=== PATIENT | female | born 1940 | race Caucasian/White ===

== ENCOUNTER 2016-11-15 10:17 | Outpatient (CLI) | payer MEDICARE, BC ==
--- NOTE | 2016-11-15 13:43 | RAD ---
CHEST TWO VIEWS: Comparison: 08-30-16 History: Dyspnea. FINDINGS: Persistent elevation of the right hemidiaphragm. Chronic change of the lung parenchyma. No pleural e ffusion. No pneumothorax. Stable cardiac silhouette. Bilateral humeral prostheses are noted. There i s mild bone demineralization. Inappropriately evaluated IVC filter. IMPRESSION: 1. No acute cardiopulmonary process. 2. Chronic changes. POS: [facility]
== END 2016-11-15 10:18 | disposition home or self-care (01) ==
LOC: RAD 10:17
PROVIDERS: ATTEND Internal Medicine Critical Care Medicine
DX: R06.00 Dyspnea, unspecified (principal)
CPT/HCPCS: 71020

== ENCOUNTER 2018-07-24 12:10 | Outpatient (CLI) | payer MEDICARE, BC ==
--- NOTE | 2018-07-24 12:53 | RAD ---
AP view chest. HISTORY: Dyspnea. AP view chest is obtained on 07/24/2018. Comparison made to previous exam from 11/15/2016. There is elevation of the right hemidiaphragm unchanged since the previous exam. No acute intrathorac ic abnormality seen. No significant interval changes noted. IMPRESSION: elevated right hemidiaphragm.
== END 2018-07-24 12:11 | disposition home or self-care (01) ==
LOC: RAD 12:10
PROVIDERS: ATTEND Internal Medicine Critical Care Medicine
DX: R06.00 Dyspnea, unspecified (principal); Q79.1 Other congenital malformations of diaphragm
CPT/HCPCS: 71046

== ENCOUNTER 2019-03-30 23:21 | Observation (INO) | payer MEDICARE, BC ==
[2019-03-31 00:11] LABS: #Basophils 0.1 thou/uL (0.0-0.2); #Eosinphils 0.2 thou/uL (0.0-0.7); #Lymphocytes 1.4 thou/uL (1.20-3.40); #Monocytes 0.6 thou/uL (0.11-0.59); #Neutrophils 5.6 thou/uL (1.40-6.50); %Basophils 0.9 % (0.0-1.0); %Eosinophils 2.5 % (0.0-10.0); %Lymphocytes 17.3 % (21.0-51.0); %Monocytes 7.5 % (0.0-10.0); %Neutrophils 71.9 % (42.0-75.0); Hemoglobin 13.1 g/dL (12.0-16.0); Mean Corpuscular HGB CONC 33.5 g/dL (32.0-36.0); Mean Corpuscular Hemoglobin 33.1 pg (27.0-31.0); Mean Corpuscular Volume 98.9 fL (78.0-98.0); Platelet Count 213 thou/uL (130-400); RBC Distribution Width 13.7 % (11.5-14.5); Red Blood Cell (RBC) Count 3.94 mill/uL (4.20-5.40); White Blood Cell (WBC) Count 7.8 thou/uL (4.8-10.8)
[2019-03-31 00:33] LABS: ALT (SGPT) 16 U/L (8-55); AST (SGOT) 21 U/L (5-34); Alkaline Phosphatase 103 U/L (40-110); Anion Gap 10 mmol/L (10-20); BUN (Urea Nitrogen) 15 mg/dL (9.8-20.1); Bilirubin, Total 0.4 mg/dL (0.2-1.2); Calc. Creatinine Clearance 0 mL/min (70-130); Calcium 8.9 mg/dL (7.8-10.44); Carbon Dioxide 36 mmol/L (23-31); Chloride 99 mmol/L (98-107); Estimated GFR-MDRD 58; Globulin 2.7 g/dL (2.4-3.5); Glucose 102 mg/dL (83-110); Potassium 4.2 mmol/L (3.5-5.1); Protein, Total 6.7 g/dL (6.0-8.3); Sodium 141 mmol/L (136-145)
[2019-03-31] MEDS ORDERED: Morphine 4 MG/ML VIAL ONE ×3 (01:00→05:42)
[2019-03-31] MEDS ORDERED: Ondansetron PF 4 MG/2 ML Vial ONE (01:00)
--- NOTE | 2019-03-31 05:38 | HP ---
REQUESTING PHYSICIAN: Micky Sanon MD ATTENDING SURGEON: Dr. Wilkins. CONSULTATIONS: Orthopedics, Dr. Lamas. HISTORY OF PRESENT ILLNESS: The patient is a 78-year-old woman, who primarily gets around in a wheelchair. She is able to do transfers and stand and pivot at baseline. Tonight, she was attempting to use the bathroom when she slipped and fell landing on her left hip. She was able to tolerate the pain for several hours and then eventually was brought to the emergency room, where she was evaluated, examined, and noted to have an incomplete periprosthetic fracture of her left proximal femur. Per discussion with Dr. Lamas, the patient will be best managed nonoperatively. The patient declined rehab. The family was concerned that she would not be able to tolerate the duration of time and they asked for placement into a skilled facility or something less strenuous to the patient. ALLERGIES: STADOL. CURRENT MEDICATIONS: 1. Clopidogrel. 2. Klor-Con. 3. Folic acid. 4. Montelukast. 5. Pravastatin. 6. Methotrexate. 7. Phenergan. 8. Synthroid. 9. Fluconazole. PAST MEDICAL HISTORY: Evelio's granulomatosis, squamous cell carcinoma of the skin, fibromyalgia, phlebitis, osteoporosis, depression. PAST SURGICAL HISTORY: Total hysterectomy, left hip replacement, right shoulder replacement, knee arthroscopic surgery x2, right knee replacement, tonsillectomy, skin biopsies and cancer removals, cataract surgery, intra-ocular lens implantation. SOCIAL HISTORY: The patient lives at home with family, and her daughter. Her daughter is her primary caregiver. The patient denies drug or alcohol use, though smoked greater than 50 years ago. REVIEW OF SYMPTOMS: A 10-point review of systems is negative except as otherwise stated. PHYSICAL EXAMINATION: VITAL SIGNS: Blood pressure 111/48, heart rate 87, respirations 20, and oxygen saturation 100% on 2 L via nasal cannula temperature is 97.6. GENERAL: The patient is resting comfortably in bed. She is awake, alert, and oriented x3. Zheng Coma Scale is 15. HEENT: Head is normocephalic atraumatic. Eyes, extraocular motion intact. PERRLA bilaterally. Ears are atraumatic without discharge. Nose atraumatic without discharge. Oropharynx is clear. NECK: Nontender. Trachea is midline. No JVD. CHEST: Clear to auscultation with good inspiratory and expiratory effort. HEART: Regular rate and rhythm. ABDOMEN: Soft, flat, nontender with active bowel sounds. Pelvis is stable with tenderness to palpation to the left hip consistent with her proximal femur fracture. EXTREMITIES: Neurovascularly intact x4 with the exception of the left lower extremity has chronic neurapraxia and valgus deformity of the ankle. BACK: By report is atraumatic and nontender. LABORATORY FINDINGS: White blood cell count 7.8, hemoglobin 13.1, hematocrit 39.0, platelets 213. Sodium 141, potassium 4.2, chloride 99, CO2 of 36, BUN 15, creatinine 0.93, glucose 102. LFTs are unremarkable. RADIOGRAPHIC FINDINGS: AP pelvis shows a periprosthetic fracture of the left proximal femur. Views of the left femur again demonstrated periprosthetic proximal femur fracture. ASSESSMENT: 1. Status post ground level fall. 2. Left periprosthetic proximal femur fracture. 3. Acute on chronic pain. 4. Multiple comorbidities. PLAN: Plan will be to admit the patient to the surgical floor for observation, pain control, and arrange placement. The patient lives in [place]. The family request either Swing Bed in [place] or possible placement to [facility]. This will be passed along to the Case Management team. The evaluation, examination, laboratory, and radiographic findings were discussed with Dr. Wilkins in the emergency department prior to this dictation. Job ID: [id number]
[2019-03-31 06:21] LABS: Bilirubin Negative (Negative); Blood, Urine Negative (Negative); Clarity Clear (Clear); Glucose, Urine (Dipstick) Normal (Negative); Leukocyte Negative Leu/uL (Negative); Nitrite Negative (Negative); Protein, Urine (Dipstick) Negative (Neg-Trace); Urobilinogen Normal mg/dL (Less than 2)
[2019-03-31] MEDS ORDERED: Ondansetron PF 4 MG/2 ML Vial IVP PRN (07:27)
[2019-03-31] MEDS ORDERED: Acetaminophen 500 MG TAB PO PRN (07:27)
[2019-03-31] MEDS ORDERED: Dextrose 50% Abboject 50 ML SYRINGE SLOW IVP PRN (07:27)
[2019-03-31] MEDS ORDERED: Dextrose 5% in Water 1,000 ML IV PRN (07:27)
[2019-03-31] MEDS ORDERED: Ondansetron ODT 4 MG TAB PO PRN (07:27)
[2019-03-31] MEDS ORDERED: Acetaminophen/Codeine 30-300mg Tablet PO PRN (07:27)
[2019-03-31] MEDS ORDERED: hydrALAZINE 20 MG/ML VIAL SLOW IVP PRN (07:27)
[2019-03-31] MEDS: Famotidine 20 MG TAB PO SCH ×2 (09:28→20:07)
[2019-03-31] MEDS: Acetaminophen/Codeine 30-300mg Tablet PO PRN ×2 (09:29→15:27)
[2019-03-31] MEDS: Gabapentin 100 MG CAP PO SCH ×2 (09:29→20:07)
--- NOTE | 2019-03-31 09:42 | RAD ---
EXAM: XR Pelvis AP STANDARD PROVIDED CLINICAL HISTORY: Left hip pain after a fall. COMPARISON: None FINDINGS: A left total hip prosthesis is noted in place. The distal aspect of the femoral component is not imag ed. There is a lucency seen at the lateral aspect intertrochanteric region left hip with cortical irregularity suggestive of a fracture. Calcifications overlie the gluteal regions bilaterally suggest ing injection granulomata. Calcifications overlie the pelvis likely related to phleboliths. Partial visualization of IVC filter is noted to the right of midline lower abdomen. Vascular calcifications a re seen in the iliac and femoral arteries. IMPRESSION: 1. Nondisplaced fracture involving the intertrochanteric region left hip seen laterally.
--- NOTE | 2019-03-31 09:45 | RAD ---
Exam: XR Femur Lt 2 View STANDARD HISTORY: Left femur pain after a fall. COMPARISON: AP view pelvis also obtained on this date FINDINGS: Left total hip prosthesis is noted without hardware complication seen. As noted on views of the pelvi s, there is a fracture involving the intertrochanteric region left hip with subtle lucency seen along the medial aspect proximal femoral diaphysis likely related to extension of fracture from the i ntertrochanteric region into the proximal diaphysis of the left femur. Fracture is nondisplaced. No additional fractures appreciated. Osteoarthritis is present at the knee. There are lucencies and sclerosis seen involving the distal fe mur involving the metadiaphysis as well as each femoral condyle with lucency and sclerosis also seen in the proximal tibia. These findings are likely related to either low-grade chondroid lesions v ersus bone infarctions. Prominent calcification seen overlying the gluteal subcutaneous soft tissues likely due to injection granulomata. Vascular calcifications are seen in the femoral arteries. IMPRESSION: 1. Nondisplaced fracture proximal left femur as described above. 2. Left total hip prosthesis. 3. Findings likely related to bone infarctions or less likely low-grade chondroid lesions involving t he distal femur and proximal tibia.
[2019-03-31 10:15] VITALS: BMI 47.0
--- NOTE | 2019-03-31 10:55 | CON ---
DATE OF CONSULTATION: 03/31/2019 CHIEF COMPLAINT: Left hip pain. HISTORY OF PRESENT ILLNESS: Ms. Pedraza is a 78-year-old female, who has a history of total hip arthroplasty approximately 20 years ago. She mostly gets around with a wheelchair now. She does stand for transfers and pivoting. She fell while she was using the bathroom and landed on her left hip. She had pain in the left hip and was brought to the emergency department. X-rays demonstrated a proximal periprosthetic fracture of the femur. The patient was admitted to the hospital for pain control and possible placement to a skilled facility. ALLERGIES: TO STADOL. PAST MEDICAL HISTORY: Squamous cell carcinoma, fibromyalgia, phlebitis, osteoporosis, depression, and Evelio's granulomatosis. PAST SURGICAL HISTORY: Total hysterectomy, left total hip arthroplasty, bilateral shoulder arthroplasty, previous knee surgery, arthroscopic and subsequent right knee arthroplasty, tonsillectomy, cataract surgery, and eye surgery. SOCIAL HISTORY: The patient lives at her home with her and daughter. She again uses a wheelchair mostly for mobilization. She denies alcohol, tobacco, or drug use. REVIEW OF SYSTEMS: Positive for left hip pain. Otherwise, negative 10-point review of systems. PHYSICAL EXAMINATION: VITAL SIGNS: Stable. The patient is normotensive, 98% on room air. GENERAL: The patient is somewhat sleepy, but does respond to questions appropriately. HEENT: Normocephalic and atraumatic. LUNGS: Breathing comfortably. ABDOMEN: Soft, nontender, and nondistended. MUSCULOSKELETAL: The patient has well-healed surgical scars over the shoulders as well as knee and left hip. There is no erythema. She has good motion of the shoulder. She can elevate both without pain. Her right leg is atraumatic. Her left leg has a chronic foot drop. She has weakness as well as decreased sensation in the foot. She cannot dorsiflex the foot or toes. She has pain with log rolling of the hip. IMAGING DATA: X-rays of the left hip demonstrate a total hip arthroplasty, which appears to have a well-fixed stem. There is a proximal femur fracture, which is periprosthetic. This does not seem to extend distally and has not loosened the stem. The acetabular cup appears to be intact. IMPRESSION: Periprosthetic left femur fracture in an elderly female, who is a minimal ambulator. PLAN: At this point, the patient will have pain control. She will have medical management. She will have DVT prophylaxis. She can mobilize and weightbear as tolerated on her left leg for transfers and for other exercises. She possibly can go back home if her family can continue to care for her versus going to a shelter facility. She should follow up with Orthopedics in approximately 1 month for repeat hip x-ray. Job ID: [id number]
[2019-03-31] MEDS: Cyclobenzaprine 10 MG TAB PO PRN (15:09)
--- NOTE | 2019-03-31 18:33 | PRG ---
DATE OF SERVICE: 03/31/2019 SUBJECTIVE: Ms. Pedraza is a 78-year-old female with status post ground level fall. She sustained left periprosthetic proximal femur fracture. The patient was seen by Dr. Lamas. The patient will be treated conservatively regarded to her left periprosthetic hip fracture. The patient will be working with Physical Therapy and Occupational Therapy and working toward placement in detention facility or probably going home, if the patient condition is feasible per Physical therapy. The patient has been stable since admission. Vital signs stable and she tolerated with her regular diet. OBJECTIVE: GENERAL: Currently, the patient lying in bed comfortable with no acute respiratory distress. VITAL SIGNS: Heart rate 80, respiratory rate 20, O2 saturation 95 on room air, and blood pressure is 120/40. LUNGS: Clear bilaterally. HEART: Regular rate and rhythm. ABDOMEN: Soft and nondistended. EXTREMITIES: Neurovascularly intact x4. NEUROLOGIC: No focal neurology deficits. ASSESSMENT: 1. Status post ground level fall. 2. Left periprosthetic proximal femur fracture, conservative treatment. 3. History of hypothyroid. PLAN: Plan will be to continue supportive care. Continue pain control. Anticipate placement in detention facility or swing bed in [place]. Continue working with physical therapy and occupational therapy. Continue DVT prophylaxis. Job ID: [id number]
[2019-03-31] MEDS: Senokot S 8.6-50 MG TAB PO SCH (20:07)
[2019-03-31] MEDS ORDERED: Atorvastatin Calcium 10 MG TAB PO SCH (21:00)
[2019-03-31] MEDS ORDERED: Senokot 8.6 MG TAB PO SCH (21:00)
--- NOTE | 2019-03-31 22:48 | PRG ---
DATE OF SERVICE: 03/31/2019 SUBJECTIVE: The patient is currently on the surgical floor. She is status post ground level fall when she sustained a periprosthetic left proximal femur fracture. The patient was evaluated by Orthopedics who determined that she was best treated nonsurgical as she is a minimal ambulator and her prosthetic appears to be intact. The patient is currently awaiting placement. She was able to start working with Therapy today, albeit sitting at the edge of the bed. She is tolerating a diet. Her pain is controlled. PHYSICAL EXAMINATION: VITAL SIGNS: Stable. The patient is afebrile. GENERAL: The patient is resting comfortably in bed. She was asleep when I entered the room. She did wake to verbal stimuli and stated that she had no issues at this time. LUNGS: Respirations are nonlabored. HEART: Regular rate and rhythm. ABDOMEN: Nondistended. EXTREMITIES: Neurovascularly intact x4. The left lower extremity, again has chronic footdrop with valgus deformity. ASSESSMENT AND PLAN: 1. Status post ground level fall. 2. Left periprosthetic hip fracture. 3. Acute on chronic pain. 4. Multiple medical comorbidities. Plan will be to continue supportive care, encourage physical and occupational therapy and await placement decision. Job ID: [id number]
[2019-04-01] MEDS: Acetaminophen/Codeine 30-300mg Tablet PO PRN ×2 (05:15→12:31)
[2019-04-01] MEDS ORDERED: Levothyroxine Sodium 75 MCG TAB PO SCH (06:00)
[2019-04-01] MEDS: Gabapentin 100 MG CAP PO SCH (07:56)
[2019-04-01] MEDS: Famotidine 20 MG TAB PO SCH (07:56)
[2019-04-01] MEDS: Cyclobenzaprine 10 MG TAB PO PRN (07:56)
[2019-04-01] MEDS: Senokot S 8.6-50 MG TAB PO SCH (07:56)
[2019-04-01] MEDS ORDERED: Docusate 100 MG CAP PO SCH (09:00)
[2019-04-01] MEDS ORDERED: Clopidogrel Bisulfate 75 MG TAB PO SCH (09:00)
[2019-04-01] MEDS ORDERED: Polyethylene Glycol 3350 17 GM Packet PO SCH (09:00)
--- NOTE | 2019-04-01 09:32 | RAD ---
EXAM: Single view of the chest HISTORY: Left hip fracture; aspiration COMPARISON: 08/17/2013 FINDINGS: Single view of the chest shows a normal sized cardiomediastinal silhouette. There is stabl e elevation the right hemidiaphragm. There is no evidence of consolidation, mass, or pleural effusion. The patient has bilateral shoulder prostheses. Cystectomy clips are seen. IMPRESSION: No evidence of acute cardiopulmonary disease
[2019-04-01] MEDS ORDERED: Gabapentin 100 MG CAP PO SCH (15:00)
[2019-04-01 15:29] VITALS: BP 137/75; TEMP 98.7
== END 2019-04-01 15:45 ==
LOC: ERS 23:21 → SURG A 03-31 08:38
PROVIDERS: ADMIT Surgery; ATTEND Surgery
DX: M97.02XA Periprosthetic fracture around internal prosthetic left hip joint, initial encounter (principal); G89.11 Acute pain due to trauma; G89.29 Other chronic pain; M81.0 Age-related osteoporosis without current pathological fracture; F32.9 Major depressive disorder, single episode, unspecified; M79.7 Fibromyalgia; M31.30 Wegener's granulomatosis without renal involvement; M21.372 Foot drop, left foot; E78.5 Hyperlipidemia, unspecified; E03.9 Hypothyroidism, unspecified; Z96.651 Presence of right artificial knee joint; Z96.611 Presence of right artificial shoulder joint; Z87.891 Personal history of nicotine dependence; Z79.02 Long term (current) use of antithrombotics/antiplatelets; Z79.899 Other long term (current) drug therapy; Z88.6 Allergy status to analgesic agent; Z88.8 Allergy status to other drugs, medicaments and biological substances; W01.0XXA Fall on same level from slipping, tripping and stumbling without subsequent striking against object, initial encounter
CPT/HCPCS: 51702; 71045; 72170; 73552; 80053; 81003; 85025; 87086; 93005; 96361; 96374; 96375; 96376 ×2; 97110; 97139 ×2; 97530; 99285; G0378 ×3; 36415; J2270; J2405

== ENCOUNTER 2019-11-18 14:14 | Emergency (ER) | payer MEDICARE, BC, OTHER ==
[2019-11-18 15:06] LABS: #Basophils 0.1 thou/uL (0.0-0.2); #Eosinphils 0.2 thou/uL (0.0-0.7); #Lymphocytes 1.2 thou/uL (1.20-3.40); #Monocytes 0.4 thou/uL (0.11-0.59); #Neutrophils 3.2 thou/uL (1.40-6.50); %Basophils 1.9 % (0.0-1.0); %Eosinophils 3.4 % (0.0-10.0); %Lymphocytes 23.8 % (21.0-51.0); %Monocytes 7.8 % (0.0-10.0); Hemoglobin 13.1 g/dL (12.0-16.0); Mean Corpuscular HGB CONC 32.4 g/dL (32.0-36.0); Mean Corpuscular Hemoglobin 31.9 pg (27.0-31.0); Mean Corpuscular Volume 98.7 fL (78.0-98.0); Mean Platelet Volume 7.9 fL (7.4-10.4); Platelet Count 195 thou/uL (130-400); Red Blood Cell (RBC) Count 4.11 mill/uL (4.20-5.40)
[2019-11-18 15:26] LABS: ALT (SGPT) 13 U/L (8-55); AST (SGOT) 24 U/L (5-34); Alkaline Phosphatase 90 U/L (40-110); Anion Gap 14 mmol/L (10-20); BUN (Urea Nitrogen) 16 mg/dL (9.8-20.1); Bilirubin, Total 0.6 mg/dL (0.2-1.2); Calc. Creatinine Clearance 0 mL/min (70-130); Carbon Dioxide 30 mmol/L (23-31); Chloride 100 mmol/L (98-107); Estimated GFR-MDRD 64; Glucose 96 mg/dL (83-110); Sodium 140 mmol/L (136-145)
--- NOTE | 2019-11-18 17:04 | RAD ---
PORTABLE CHEST ONE VIEW: Date: 11-18-2019 Time: 4:45 p.m. History: Shortness of breath, concern for pneumonia. Comparison: 04-13-2019 FINDINGS: There is continued elevation of the right hemidiaphragm. The heart size is normal. No lobar consolida tion, pneumothoraces, jacob pulmonary edema or pleural effusions are seen. Post op changes of bilater al humeral head prostheses are again seen. IMPRESSION: No acute process. POS: [facility]
[2019-11-18] MEDS ORDERED: Albuterol 200 PUFF (6.7GM INHALER) ONE (17:17)
[2019-11-19 12:05] LABS: SARS-CoV-2 MS2 Positive; SARS-CoV-2 N Gene Negative; SARS-CoV-2 S Gene Negative; SARS-CoV-2 by NAA Not Detected (NotDetected); SARS-CoV-2 orf1ab Negative
== END 2019-11-18 19:57 | disposition home or self-care (01) ==
LOC: ERS 14:14
DX: J18.9 Pneumonia, unspecified organism (principal); Z20.828 Contact with and (suspected) exposure to other viral communicable diseases; E78.5 Hyperlipidemia, unspecified; M79.7 Fibromyalgia; F32.9 Major depressive disorder, single episode, unspecified; Z79.899 Other long term (current) drug therapy
CPT/HCPCS: 71045; 80053; 83880; 84484; 85025; 93005; U0003; 36415; 87635

== ENCOUNTER 2019-11-25 14:57 | Emergency (ER) | payer MEDICARE, BC ==
[~2019-11-25 14:57] MED LIST: Iopamidol-370 76% 500 ML 1 ML ONE
[2019-11-25 17:06] LABS: #Basophils 0.1 thou/uL (0.0-0.2); #Eosinphils 0.1 thou/uL (0.0-0.7); #Lymphocytes 1.3 thou/uL (1.20-3.40); #Monocytes 0.4 thou/uL (0.11-0.59); #Neutrophils 3.1 thou/uL (1.40-6.50); %Basophils 1.7 % (0.0-1.0); %Eosinophils 2.4 % (0.0-10.0); %Lymphocytes 26.1 % (21.0-51.0); %Monocytes 7.5 % (0.0-10.0); %Neutrophils 62.3 % (42.0-75.0); Hemoglobin 13.2 g/dL (12.0-16.0); Mean Corpuscular HGB CONC 33.1 g/dL (32.0-36.0); Mean Corpuscular Hemoglobin 32.2 pg (27.0-31.0); Mean Corpuscular Volume 97.3 fL (78.0-98.0); Mean Platelet Volume 9.3 fL (7.4-10.4); Platelet Count 197 thou/uL (130-400); RBC Distribution Width 14.6 % (11.5-14.5); Red Blood Cell (RBC) Count 4.09 mill/uL (4.20-5.40); White Blood Cell (WBC) Count 4.9 thou/uL (4.8-10.8)
[2019-11-25 17:38] LABS: ALT (SGPT) 19 U/L (8-55); AST (SGOT) 53 U/L (5-34); Albumin 3.8 g/dL (3.4-4.8); Alkaline Phosphatase 101 U/L (40-110); Anion Gap 15 mmol/L (10-20); BUN (Urea Nitrogen) 18 mg/dL (9.8-20.1); Bilirubin, Total 0.5 mg/dL (0.2-1.2); Calc. Creatinine Clearance 0 mL/min (70-130); Calcium 8.8 mg/dL (7.8-10.44); Carbon Dioxide 28 mmol/L (23-31); Chloride 99 mmol/L (98-107); Estimated GFR-MDRD 58; Glucose 100 mg/dL (83-110); Potassium 5.5 mmol/L (3.5-5.1); Protein, Total 7.8 g/dL (6.0-8.3); Sodium 136 mmol/L (136-145)
--- NOTE | 2019-11-25 19:16 | ULT ---
BILATERAL LOWER EXTREMITY VENOUS DOPPLER EVALUATION PROVIDED CLINICAL HISTORY: Bilateral lower extremity edema TECHNIQUE: Grayscale, color doppler and spectral doppler images were obtained of the common femoral , femoral, profunda femoral, popliteal and posterior tibial veins of both lower extremities. FINDINGS: There is normal compression, flow and augmentation seen with the deep venous structures within both l ower extremities. There is subcutaneous edema involving the forelegs bilaterally. IMPRESSION: No sonographic evidence for lower extremity deep venous thrombosis.
[2019-11-25] MEDS ORDERED: Dexamethasone 10 MG/ML VIAL ONE (20:52)
--- NOTE | 2019-11-25 21:15 | CT ---
CTA OF THE CHEST WITH CONTRAST: Comparison: CT abdomen/pelvis 07-14-10 History: Sore throat for three weeks. Cough. Technique: Multiple contiguous axial images were obtained in a CTA of the chest with contrast perform ed with pulmonary embolism protocol. 3D oblique MIP reformats and direct coronal reformats were perfo rmed. FINDINGS: The pulmonary arteries are well opacified without filling defects to suggest pulmonary emboli. The he art is normal in size. There was a left upper extremity injection. There are extensive venous collate rals in the chest wall bypassing a region of the left subclavian vein suggesting that there is possib ly a narrowing or stenosis of the left subclavian vein. No hilar or mediastinal lymphadenopathy is seen. There are calcifications in the trachea and victoria of the bronchi. There is elevation of the right hemidiaphragm. No pneumothorax or pleural effusion are seen. No suspi cious pulmonary mass or focal infiltrates are seen. Atelectasis is seen in the right lung base. A nod ular opacity along the left major fissure appears to contain a calcification likely a calcified granu porsha. Degenerative changes are seen in the spine. The patient is status post cholecystectomy. Biliary dilat ation is likely a reservoir effect from prior cholecystectomy. IMPRESSION: 1. No evidence of pulmonary thromboembolism. 2. Possible left subclavian vein narrowing or occlusion with collaterals as described above. POS: [facility]
== END 2019-11-25 21:05 | disposition home or self-care (01) ==
LOC: ERS 14:57
DX: R60.0 Localized edema (principal); F32.9 Major depressive disorder, single episode, unspecified; J02.9 Acute pharyngitis, unspecified; E78.5 Hyperlipidemia, unspecified; Z87.891 Personal history of nicotine dependence; Z79.899 Other long term (current) drug therapy
CPT/HCPCS: 71275; 80053; 83880; 84484; 85025; 93005; 93970; 96374; J1100; Q9967

== ENCOUNTER 2019-12-11 12:31 | Emergency (ER) | payer MEDICARE, BC ==
--- NOTE | 2019-12-11 16:30 | RAD ---
PORTABLE CHEST: Date: 12/11/2019 INDICATION: Low O2 levels. COMPARISON: 11/18/2019. FINDINGS: Elevated right hemidiaphragm is again noted. There is associated right basilar atelectasis and/or inf iltrate. Small right effusion may be present. There is cardiomegaly and mid vascular engorgement. Donna st findings appear stable from 11/18/2019. IMPRESSION: Stable chest findings as described above. POS: [facility]
[2019-12-11 17:00] LABS: #Basophils 0.1 thou/uL (0.0-0.2); #Eosinphils 0.2 thou/uL (0.0-0.7); #Lymphocytes 1.2 thou/uL (1.20-3.40); #Monocytes 0.3 thou/uL (0.11-0.59); #Neutrophils 4.4 thou/uL (1.40-6.50); %Basophils 1.2 % (0.0-1.0); %Eosinophils 2.5 % (0.0-10.0); %Lymphocytes 19.5 % (21.0-51.0); %Neutrophils 71.9 % (42.0-75.0); Hemoglobin 12.9 g/dL (12.0-16.0); Mean Corpuscular HGB CONC 31.2 g/dL (32.0-36.0); Mean Corpuscular Hemoglobin 30.8 pg (27.0-31.0); Mean Corpuscular Volume 98.5 fL (78.0-98.0); Platelet Count 160 thou/uL (130-400); Red Blood Cell (RBC) Count 4.18 mill/uL (4.20-5.40); White Blood Cell (WBC) Count 6.1 thou/uL (4.8-10.8)
[2019-12-11 17:22] LABS: ALT (SGPT) 12 U/L (8-55); AST (SGOT) 21 U/L (5-34); Albumin 3.9 g/dL (3.4-4.8); Alkaline Phosphatase 99 U/L (40-110); Anion Gap 14 mmol/L (10-20); BUN (Urea Nitrogen) 14 mg/dL (9.8-20.1); Bilirubin, Total 0.3 mg/dL (0.2-1.2); Calc. Creatinine Clearance 0 mL/min (70-130); Calcium 8.6 mg/dL (7.8-10.44); Carbon Dioxide 30 mmol/L (23-31); Chloride 102 mmol/L (98-107); Estimated GFR-MDRD 63; Globulin 2.5 g/dL (2.4-3.5); Glucose 112 mg/dL (83-110); Potassium 4.4 mmol/L (3.5-5.1); Protein, Total 6.4 g/dL (6.0-8.3); Sodium 142 mmol/L (136-145)
--- NOTE | 2019-12-14 16:29 | EKG ---
Test Reason : Blood Pressure : / mmHG Vent. Rate : 079 BPM Atrial Rate : 079 BPM P-R Int : 250 ms QRS Dur : 096 ms QT Int : 392 ms P-R-T Axes : 041 007 048 degrees QTc Int : 449 ms Poor data quality, interpretation may be adversely affected Sinus rhythm with 1st degree A-V block Anteroseptal infarct , age undetermined Abnormal ECG Confirmed by AISHA RUIZ DO ([id number]), newspaper editor managing LIYAH SANCHEZ ([id number]) on 12/14/2019 4:29:18 PM Referred By: Confirmed By:AISHA RUIZ DO
== END 2019-12-11 19:00 | disposition home or self-care (01) ==
LOC: ERS 12:31
DX: R06.02 Shortness of breath (principal); R05 Cough; E78.5 Hyperlipidemia, unspecified; Z87.891 Personal history of nicotine dependence
CPT/HCPCS: 36415; 71045; 80053; 83880; 84484; 85025; 93005